=== PATIENT | female | born 1940 | race Hispanic/Latino ===

== ENCOUNTER 2017-11-16 18:32 | Emergency (ER) | payer OTHER ==
[~2017-11-16 18:32] MED LIST: ASPI-1181 PO; BACL10TA PO; CHOL50004 PO; EXEM25TA PO; LEVE750T10 PO; LEVO25TA54 PO; OMEP40CA37 PO; SIMV40TA59 PO; TRAM50TA4 PO; VALS1TAB54 PO; VERA120C2 PO
[2017-11-16] MEDS ORDERED: KETOROLAC TROMETHAMINE 15MG/ML ONE (19:27)
== END 2017-11-16 21:09 | disposition home or self-care (01) ==
LOC: EDH 18:32
DX: S16.1XXA Strain of muscle, fascia and tendon at neck level, initial encounter (principal); S39.012A Strain of muscle, fascia and tendon of lower back, initial encounter; I10 Essential (primary) hypertension; E07.9 Disorder of thyroid, unspecified; Z90.10 Acquired absence of unspecified breast and nipple; Z79.82 Long term (current) use of aspirin; V49.59XA Passenger injured in collision with other motor vehicles in traffic accident, initial encounter; Y93.89 Activity, other specified; Y92.89 Other specified places as the place of occurrence of the external cause; Y99.8 Other external cause status
CPT/HCPCS: 72125; 72128; 72131; 96374; 99284; J1885

== ENCOUNTER → 2018-05-09 | Outpatient (CLI) | payer OTHER | END | disposition home or self-care (01) | LOC: RAH 08:57 | PROVIDERS: ATTEND Family Medicine | DX: R92.8 Other abnormal and inconclusive findings on diagnostic imaging of breast (principal); Z85.3 Personal history of malignant neoplasm of breast | CPT/HCPCS: 77065 ==

== ENCOUNTER 2019-03-06 05:54 | Observation (INO) | payer OTHER ==
[2019-02-28 15:40] VITALS: BP 147/69
[2019-02-28 16:15] LABS: INR 0.94 (0.85-1.15); PARTIAL THROMBOPLASTIN TIME 25.9 SEC (26.3-35.5); PROTHROMBIN TIME 9.9 SEC (9.6-11.6)
[~2019-03-06] VITALS: Ht 162.6 cm; Wt 99.0 kg
[2019-03-06] VITALS (20 sets, daily range): BP systolic 122–182; BP diastolic 54–77
[~2019-03-06 05:54] MED LIST changes: -BACL10TA PO; +CALC600T12 PO; +CEFAZOLIN SODIUM 1 GM VIAL IVP ONE; -EXEM25TA PO; +FISH12002 PO; +LOSA50TA2 PO; -VALS1TAB54 PO
[2019-03-06] MEDS ORDERED: MIDAZOLAM HCL 1 MG/ML 2ML VIAL ONE (07:12)
[2019-03-06] MEDS ORDERED: LIDOCAINE PF 2% 5ML ABBOJECT ONE (07:12)
[2019-03-06] MEDS ORDERED: PROPOFOL 10 MG/ML 20ML VIAL IV ONE ×2 (07:12→08:52)
[2019-03-06] MEDS ORDERED: ROPIVACAINE 0.5% 5MG/ML 30ML IJ ONE ×2 (07:12→07:32)
[2019-03-06] MEDS ORDERED: FENTANYL CITRATE PF 50 MCG/1 ML 2ML VIAL ONE ×4 (07:12→10:14)
[2019-03-06] MEDS ORDERED: ROCURONIUM 10MG/1ML SYR 10 MG/ML ML ONE ×2 (07:12→07:44)
[2019-03-06] MEDS ORDERED: TRANEXAMIC ACID 1000MG/10ML IV ONE (07:15)
[2019-03-06] MEDS ORDERED: VANCOMYCIN HCL 1 GM VIAL ONE (07:17)
[2019-03-06] MEDS ORDERED: NEOSTIGMINE 5MG/5ML SYR IV ONE (07:18)
[2019-03-06] MEDS ORDERED: GLYCOPYRROLATE 1 MG/5 ML SYRINGE ONE (07:18)
[2019-03-06] MEDS ORDERED: CEFAZOLIN SODIUM 1 GM VIAL ONE (07:42)
--- NOTE | 2019-03-06 07:42 | NUR ---
POTENTIAL FOR INFECTION: NO SHAVING TO RIGHT SHOULDER / ARM NEEDED ASSESSED PER ELIZABETH QUEVEDO. WIPED WITH AME: 2% CHLORHEXIDINE GLUCONATE PATIENTS PRE-OP SKIN PREP PER RAMIRO TURCIOS
--- NOTE | 2019-03-06 07:59 | NUR ---
POTENTIAL FOR INFECTION: SWABBED BILATERAL NARE WITH SKIN AND NASAL ANTISEPTIC (POVIDONE-IODINE SOLUTION 5% PATIENTS PRE-OP SKIN PREPARATION ORDERED PER DR. MAHONEY.
[2019-03-06] MEDS ORDERED: LACTATED RINGERS 1000ML 1,000 ML IV SCH (08:00)
[2019-03-06] MEDS ORDERED: ONDANSETRON HCL 4 MG/2 ML VIAL ONE (08:57)
[2019-03-06] MEDS ORDERED: DEXAMETHASONE SOD PHOSPHATE 10MG/ML 1ML VIAL ONE (08:57)
[2019-03-06] MEDS ORDERED: KETOROLAC TROMETHAMINE 30MG/ML ONE (09:40)
[2019-03-06] MEDS: SODIUM CHLORIDE 0.9% 1000ML 1,000 ML IV SCH ×2 (10:08→21:30)
[2019-03-06] MEDS ORDERED: KETOROLAC TROMETHAMINE 15MG/ML IV PRN (10:15)
[2019-03-06] MEDS ORDERED: CALCIUM CARBONATE 500 MG TABLET PO PRN (10:15)
[2019-03-06] MEDS ORDERED: OXYCODONE HCL 5 MG TAB PO PRN (10:15)
[2019-03-06] MEDS ORDERED: ONDANSETRON HCL 4 MG/2 ML VIAL IVP PRN (10:15)
[2019-03-06] MEDS: ACETAMINOPHEN EXTRA STRENGTH 500 MG TABLET PO SCH ×2 (10:15→17:02)
--- NOTE | 2019-03-06 10:30 | NUR ---
ZHANG DOLL NOTIFIED OF PT'S PAIL LEVEL. PT IDENTIFICATION PREFORMED AND RIGHT SITE CONDUCTED, ZHANG DOLL RE-BLOCKED THE AREA. Addendum: 03/06/19 at 1035 by JENNI DUMONT RN RN Amended: Links added.
--- NOTE | 2019-03-06 15:40 | NUR ---
INITIAL CM NOTES/REFERRA Met w patient /spouse at bedside at 1550 s/p tka, states has all dme, daughter works at [employer], [facility] set up at MD office, consent for JARED/choice signed, states home safe & accessible, uses cane 80% of the time; still drives occasionally, family ready /supportive of this surgery, dcp home Call to MD office for clarification of order; sent referral pkt to [facility], call returned// accepting patient Addendum: 03/07/19 at 1300 by EDEL HILL RN CM Amended: Links added.
[2019-03-06] MEDS: CEFAZOLIN SODIUM 1 GM VIAL IVP SCH (16:13)
[2019-03-06] MEDS: OXYCODONE HCL 5 MG TAB PO PRN (17:03)
[2019-03-06] MEDS ORDERED: ASPIRIN 81 MG EC TAB PO SCH (21:00)
[2019-03-06] MEDS ORDERED: FAMOTIDINE 20MG TAB 20 MG TAB PO SCH (21:00)
[2019-03-06] MEDS: CELECOXIB 200 MG CAP PO SCH (21:26)
[2019-03-06] MEDS: LEVETIRACETAM 500 MG TABLET PO SCH (21:26)
[2019-03-06] MEDS: SIMVASTATIN 20 MG TABLET PO SCH (21:26)
[2019-03-06] MEDS: VERAPAMIL HCL 240 MG SRTAB PO SCH (22:11)
[2019-03-07] MEDS: CEFAZOLIN SODIUM 1 GM VIAL IVP SCH (00:04)
[2019-03-07 00:30] VITALS: BP 145/77
[2019-03-07] MEDS: ACETAMINOPHEN EXTRA STRENGTH 500 MG TABLET PO SCH ×3 (02:24→16:52)
[2019-03-07 04:00] VITALS: BP 136/61
[2019-03-07 04:16] LABS: HEMATOCRIT 30.8 % (36-48); MEAN CORPUSCULAR HEMOGLOBIN 33.9 pg (27.0-33.0); MEAN CORPUSCULAR HGB CONC 34.3 g/dL (32.0-36.0); MEAN CORPUSCULAR VOLUME 98.7 fL (79-99); PLATELET COUNT (AUTO) 219 K/uL (130-400); RED BLOOD CELL COUNT(AUTO) 3.12 MIL/uL (4.00-5.50); RED CELL DISTRIBUTION WIDTH 12.6 % (11.0-15.5); WHITE BLOOD COUNT (AUTO) 10.5 K/uL (4.8-10.8)
[2019-03-07 04:30] LABS: CREATININE 0.9 mg/dL (0.5-1.5); POTASSIUM 4.5 mmol/L (3.5-5.1)
[2019-03-07] MEDS: SODIUM CHLORIDE 0.9% 1000ML 1,000 ML IV SCH (06:08)
[2019-03-07 08:07] VITALS: BP 129/65
--- NOTE | 2019-03-07 08:20 | NUR ---
PT NOTE: DISCUSSED HEP WITH PATIENT VIA VERBAL AND PHYSICAL DEMONSTRATION ALONG WITH RETURN DEMO FROM PATIENT. Addendum: 03/07/19 at 905 by CLEMENTINA SANDOVAL PT Amended: Links added.
[2019-03-07] MEDS ORDERED: PANTOPRAZOLE SODIUM 40 MG TABLET.DR PO SCH (09:00)
[2019-03-07] MEDS ORDERED: LEVOTHYROXINE 25 MCG TABLET PO SCH (09:00)
[2019-03-07] MEDS: **HM** VIT D3 5000 UNITS PO SCH (09:00)
[2019-03-07] MEDS: ASPIRIN 81 MG EC TAB PO SCH (10:00)
[2019-03-07] MEDS: LEVETIRACETAM 500 MG TABLET PO SCH ×2 (10:00→20:43)
[2019-03-07] MEDS: LOSARTAN 50 MG TABLET PO SCH (10:00)
[2019-03-07] MEDS ORDERED: PHARMACY COMMUNICATION MISC SCH (10:00)
[2019-03-07] MEDS: CELECOXIB 200 MG CAP PO SCH ×2 (10:00→20:42)
[2019-03-07] MEDS: CALCIUM CARBONATE 500 MG TABLET PO SCH (10:01)
[2019-03-07] MEDS: POLYETHYLENE GLYCOL 3350 17 GM POWD.PACK PO SCH (10:01)
[2019-03-07] MEDS: OMEPRAZOLE 40 MG PO SCH (10:15)
[2019-03-07 10:48] VITALS: BP 123/52
--- NOTE | 2019-03-07 13:01 | NUR ---
CALL TO DR. TRONCOSO OFFICE CALL MADE AT [address] TRONCOSO OFFICE- NOTED PATIENT ORDER. CLAIRIFICATION? STATES THEY WOULD CALL BACK DR. MAHONEY ON THE FLOOR JUST NOW AT 1309, ORDER GAL, Addendum: 03/07/19 at 1309 by EDEL HILL RN CM Amended: Links added.
[2019-03-07 16:15] VITALS: BP 135/69
[2019-03-07] MEDS: OXYCODONE HCL 5 MG TAB PO PRN (17:56)
[2019-03-07 19:38] VITALS: BP 154/85
[2019-03-07] MEDS: VERAPAMIL HCL 240 MG SRTAB PO SCH (20:42)
[2019-03-07] MEDS: SIMVASTATIN 20 MG TABLET PO SCH (20:42)
[2019-03-07] MEDS: TRAMADOL HCL 50 MG TABLET PO PRN (21:00)
[2019-03-08] MEDS: ACETAMINOPHEN EXTRA STRENGTH 500 MG TABLET PO SCH ×2 (01:55→09:29)
[2019-03-08 04:00] VITALS: BP 137/64
[2019-03-08] MEDS ORDERED: LEVOTHYROXINE 25 MCG TABLET PO SCH (07:30)
[2019-03-08 07:42] VITALS: BP 144/63
[2019-03-08] MEDS: **HM** VIT D3 5000 UNITS PO SCH (08:27)
[2019-03-08] MEDS: CELECOXIB 200 MG CAP PO SCH (09:24)
[2019-03-08] MEDS: LOSARTAN 50 MG TABLET PO SCH (09:24)
[2019-03-08] MEDS: ASPIRIN 81 MG EC TAB PO SCH (09:24)
[2019-03-08] MEDS: OMEPRAZOLE 40 MG PO SCH (09:25)
[2019-03-08] MEDS: CALCIUM CARBONATE 500 MG TABLET PO SCH (09:25)
[2019-03-08] MEDS: OXYCODONE HCL 5 MG TAB PO PRN (09:25)
[2019-03-08] MEDS: POLYETHYLENE GLYCOL 3350 17 GM POWD.PACK PO SCH (09:25)
[2019-03-08] MEDS: LEVETIRACETAM 500 MG TABLET PO SCH (09:25)
[2019-03-08 11:15] VITALS: BP 142/63
[2019-03-08] MEDS: TRAMADOL HCL 50 MG TABLET PO PRN (13:19)
--- NOTE | 2019-03-08 16:17 | NUR ---
Discharge teaching completed in the room with pt ans family at side. Emphasis on Dr. Cain's orders for activity, incision care, and s/s to monitor for, including when to seek emergency care vs dial 911. Pt is to call to schedule follow up appt with Dr. Cain on Sunday, to be seen within 2 weeks. Written rx for walker, asa 81 mg, and Tylenol 3 given to pt. Discussed medication purpose, route, frequency, and duration, as well as side effects and adverse effects. Dressing change to left knee per Dr. Cain's orders. Incision asymptomatic, well approximated with surgical glue. No active drainage. Painted with Betadine, dressed with sterile 4x4's and tape. Pt tolerated well. PIV removed, tip intact. Dressed with sterile 2x2 and band aid after hemostasis. Pt wheeled to front lobby by [facility] staff for transport home via private car. Pt in stable condition at time of discharge. Addendum: 03/08/19 at 1634 by KING DEXTER RN RN Pt stated already has walker at home. She stated that home health has already been set up by Dr. Cain's office through [employer].
[2019-03-09] MEDS ORDERED: BISACODYL 10 MG SUPP.RECT RC PRN (10:15)
== END 2019-03-08 16:30 | disposition home health service (06) ==
LOC: DAH 05:54 → INTOOBSV 05:55 → 4AH 05:55 → DAH 05:55
PROVIDERS: ADMIT Orthopaedic Surgery; ATTEND Orthopaedic Surgery
DX: M17.12 Unilateral primary osteoarthritis, left knee (principal); E66.9 Obesity, unspecified; G40.909 Epilepsy, unspecified, not intractable, without status epilepticus; Z79.899 Other long term (current) drug therapy; Z79.01 Long term (current) use of anticoagulants
CPT/HCPCS: 27447; 36415 ×3; 80048; 85027; 85610; 85730; 86850; 86900; 86901; 87641; 88304; 88311; 96374; 96375; 96376; 97039; 97116 ×5; 97161; 97530 ×5; A4450; A4649 ×5; A4930 ×3; A6223; C1776; G0378 ×27; G8978; G8979; G8980; G8981; G8982; G8983; J0690 ×3; J1100; J1885 ×2; J2001; J2250; J2405; J2704 ×2; J2710; J2795 ×2; J3010 ×4; J3370; J3490 ×2; J7030; J7120 ×2

== ENCOUNTER → 2019-05-20 | Outpatient (CLI) | payer OTHER ==
[~2019-05-20] MED LIST changes: -CEFAZOLIN SODIUM 1 GM VIAL IVP ONE; +OMEP40CA13 PO; -OMEP40CA37 PO
== END | disposition home or self-care (01) ==
LOC: RAH 05-14 09:47
PROVIDERS: ATTEND Family Medicine
DX: R92.8 Other abnormal and inconclusive findings on diagnostic imaging of breast (principal); Z85.3 Personal history of malignant neoplasm of breast
CPT/HCPCS: 77065

== ENCOUNTER → 2020-01-20 | Outpatient (CLI) | payer OTHER ==
[~2020-01-20] MED LIST changes: -ASPI-1181 PO; +ASPI-1443 PO; -CALC600T12 PO; +CALC600T15 PO
== END | disposition home or self-care (01) ==
LOC: SHCH 08:01
PROVIDERS: ATTEND Internal Medicine Cardiovascular Disease
DX: I70.0 Atherosclerosis of aorta (principal); I10 Essential (primary) hypertension
CPT/HCPCS: 93975

== ENCOUNTER 2020-07-13 09:57 | Observation (INO) | payer OTHER ==
[~2020-07-13] VITALS: Ht 166.4 cm; Wt 93.3 kg
[~2020-07-13 09:57] MED LIST changes: +CALC-1125 PO; -CALC600T15 PO; -OMEP40CA13 PO; +OMEP40CA21 PO
[2020-07-13 10:48] LABS: BASOPHILS % (AUTO) 0.1 % (0.0-5.0); EOSINOPHILS % (AUTO) 0.1 % (0.0-8.0); HEMATOCRIT 32.3 % (36-48); LYMPHOCYTES % (AUTO) 8.6 % (21.0-51.0); MEAN CORPUSCULAR HEMOGLOBIN 33.4 pg (27.0-33.0); MEAN CORPUSCULAR HGB CONC 34.4 g/dL (32.0-36.0); MEAN CORPUSCULAR VOLUME 97.3 fL (79-99); MONOCYTES % (AUTO) 11.4 % (3.0-13.0); NEUTROPHILS % (AUTO) 79.3 % (40.0-77.0); PLATELET COUNT (AUTO) 271 K/uL (130-400); RED BLOOD CELL COUNT(AUTO) 3.32 MIL/uL (4.00-5.50); RED CELL DISTRIBUTION WIDTH 12.3 % (11.0-15.5)
[2020-07-13 10:49] LABS: CREATININE 1.5 mg/dL (0.5-1.5); POTASSIUM 4.3 mmol/L (3.5-5.1)
[2020-07-13 10:54] LABS: ALBUMIN 3.3 g/dL (3.5-5.0); BILIRUBIN,TOTAL 0.9 mg/dL (0.2-1.0)
[2020-07-13] MEDS ORDERED: 0.9%NACL 1000ML 1,000 ML IV ONE ×2 (11:23→19:38)
[2020-07-13 12:31] LABS: APPEARANCE,URINE Cloudy (CLEAR); BILIRUBIN,URINE Negative (NEGATIVE); COLOR,URINE Yellow (YELLOW); GLUCOSE, URINE (UA) Negative (NEGATIVE); KETONES,URINE Negative (NEGATIVE); LEUKOCYTE ESTERASE ,URINE Large (NEGATIVE); NITRATE,URINE Positive (NEGATIVE); OCCULT BLOOD,URINE Moderate (NEGATIVE); PROTEIN,URINE Trace mg/dL (NEGATIVE)
[2020-07-13 12:39] LABS: BACTERIA,URINE Few /HPF (None Seen); RBC,URINE 0-1 /HPF (0-1); SQUAMOUS EPITHELIAL CELL,UR Rare /HPF (0-2)
[2020-07-13] MEDS ORDERED: ASPIRIN 325 MG TABLET ONE (14:59)
[2020-07-13] MEDS ORDERED: CEFTRIAXONE 1G VIAL ONE (14:59)
[2020-07-13] MEDS ORDERED: ACETAMINOPHEN 325 MG TAB PO PRN (15:15)
[2020-07-13] MEDS ORDERED: ONDANSETRON 4MG INJ IVP PRN (15:15)
[2020-07-13] MEDS ORDERED: CLONIDINE HCL 0.1 MG TABLET PO PRN ×2 (15:15)
[2020-07-13] MEDS ORDERED: TEMAZEPAM 15 MG CAPSULE PO PRN (15:15)
[2020-07-13] MEDS ORDERED: DOCUSATE SODIUM 100 MG CAP PO PRN (15:15)
[2020-07-13] MEDS ORDERED: ACETAMINOPHEN 650 MG SUPPOSITORY RC PRN (15:15)
[2020-07-13] MEDS: INSULIN HUMULIN R 100 UNIT/ML 3ML SQ SCH ×2 (16:30→21:00)
[2020-07-13 18:08] LABS: TROPONIN I 0.15 ng/mL (0.00-0.06)
[2020-07-13] MEDS ORDERED: ACETAMINOPHEN 325 MG TAB ONE (19:48)
[2020-07-13] MEDS ORDERED: FAMOTIDINE 20MG TAB ONE (20:32)
[2020-07-13] MEDS ORDERED: FAMOTIDINE 20MG TAB PO SCH (21:00)
[2020-07-13 21:26] LABS: TROPONIN I 0.12 ng/mL (0.00-0.06)
[2020-07-13] MEDS ORDERED: TRAMADOL HCL 50 MG TABLET PO PRN (22:30)
[2020-07-13] MEDS: 0.9%NACL 1000ML 1,000 ML IV SCH (23:15)
[2020-07-14] MEDS ORDERED: ACETAMINOPHEN 325 MG TAB ONE (02:52)
[2020-07-14 04:01] LABS: BASOPHILS % (AUTO) 0.2 % (0.0-5.0); EOSINOPHILS % (AUTO) 0.3 % (0.0-8.0); HEMATOCRIT 28.4 % (36-48); LYMPHOCYTES % (AUTO) 9.1 % (21.0-51.0); MEAN CORPUSCULAR HGB CONC 34.9 g/dL (32.0-36.0); MEAN CORPUSCULAR VOLUME 97.6 fL (79-99); PLATELET COUNT (AUTO) 221 K/uL (130-400); RED BLOOD CELL COUNT(AUTO) 2.91 MIL/uL (4.00-5.50); RED CELL DISTRIBUTION WIDTH 12.3 % (11.0-15.5); WHITE BLOOD COUNT (AUTO) 13.6 K/uL (4.8-10.8)
[2020-07-14 04:25] LABS: CREATININE 1.1 mg/dL (0.5-1.5); MAGNESIUM 1.9 mg/dL (1.80-2.40); POTASSIUM 4.6 mmol/L (3.5-5.1); THYROID STIMULATING HORMONE 1.03 uIU/mL (0.36-3.74); TROPONIN I 0.11 ng/mL (0.00-0.06)
[2020-07-14 04:29] LABS: B-TYPE NATRIURETIC PEPTIDE 60 pg/mL (0-100); CHOLESTEROL 98 mg/dL (<200); HDL CHOLESTEROL 80 mg/dL (35-85); LDL DIRECT 25 mg/dL (0-99); TRIGLYCERIDES 53 mg/dL (30-200)
[2020-07-14] MEDS: 0.9%NACL 1000ML 1,000 ML IV SCH ×4 (07:15→23:15)
[2020-07-14] MEDS: INSULIN HUMULIN R 100 UNIT/ML 3ML SQ SCH ×4 (07:30→21:00)
[2020-07-14] MEDS ORDERED: ASPIRIN 81MG CHEW TAB ONE (07:52)
[2020-07-14] MEDS ORDERED: ASCORBIC ACID 500 MG TAB ONE (07:52)
[2020-07-14] MEDS ORDERED: LEVOTHYROXINE 25 MCG TABLET ONE (07:52)
[2020-07-14] MEDS ORDERED: FAMOTIDINE 20MG TAB ONE (07:52)
[2020-07-14] MEDS ORDERED: POLYETHYLENE GLYCOL 3350 17 GM POWD.PACK ONE (07:53)
[2020-07-14] MEDS ORDERED: CEFTRIAXONE 1G VIAL ONE (07:53)
[2020-07-14] MEDS ORDERED: LOSARTAN 50 MG TABLET ONE (07:53)
[2020-07-14] MEDS ORDERED: ENOXAPARIN SODIUM 40 MG/0.4 ML SYRINGE SQ ONE (07:53)
[2020-07-14] MEDS ORDERED: 0.9%NACL 100ML 100 ML IV ONE (07:54)
[2020-07-14] MEDS: ASCORBIC ACID 500 MG TAB PO SCH (09:00)
[2020-07-14] MEDS ORDERED: NON-FORMULARY MEDICATION 1 EACH (Omeprazole 40 MG) PO SCH (09:00)
[2020-07-14] MEDS ORDERED: NON-FORMULARY MEDICATION 1 EACH (Levetiracetam 750 MG) PO SCH (09:00)
[2020-07-14] MEDS: LOSARTAN 50 MG TABLET PO SCH (09:00)
[2020-07-14] MEDS: LEVOTHYROXINE 25 MCG TABLET PO SCH (09:00)
[2020-07-14] MEDS: ASPIRIN 81MG CHEW TAB PO SCH (09:00)
[2020-07-14] MEDS ORDERED: NON-FORMULARY MEDICATION 1 EACH (Calcium Carbonate (Calcium) 600 MG) PO SCH (09:00)
[2020-07-14] MEDS: ASPIRIN 81 MG EC TAB PO SCH (09:00)
[2020-07-14] MEDS ORDERED: CHOLECALCIFEROL 5000 UNIT PO SCH (09:00)
[2020-07-14] MEDS: FAMOTIDINE 20MG TAB PO SCH (09:00)
[2020-07-14] MEDS: POLYETHYLENE GLYCOL 3350 17 GM POWD.PACK PO SCH (09:00)
[2020-07-14] MEDS: CEFTRIAXONE 1G VIAL IVP SCH (09:00)
[2020-07-14] MEDS ORDERED: 0.9%NACL 1000ML 1,000 ML IV ONE (09:48)
[2020-07-14] MEDS ORDERED: ZOSYN 3.375GM+NS 50ML 50 ML IV ONE (11:43)
[2020-07-14] MEDS: ZOSYN 3.375GM+NS 50ML 50 ML IV SCH ×2 (13:00→21:57)
[2020-07-14 18:39] VITALS: BP 130/61
[2020-07-14 20:00] VITALS: BP 120/60
[2020-07-14] MEDS ORDERED: VERAPAMIL HCL 120 MG PO SCH (21:00)
[2020-07-14] MEDS ORDERED: NON-FORMULARY MEDICATION 1 EACH (Simvastatin (Zocor) 40 MG) PO SCH (21:00)
[2020-07-14] MEDS ORDERED: SIMVASTATIN 20 MG TABLET PO SCH (21:00)
[2020-07-14] MEDS ORDERED: VERAPAMIL HCL 80 MG TABLET PO SCH (21:00)
[2020-07-14 21:10] VITALS: BP 150/57
[2020-07-14 21:11] VITALS: BP_SYST 131; BP_SYST 136; BP_DIAS 68; BP_DIAS 84
[2020-07-14] MEDS ORDERED: PHARMACY COMMUNICATION MISC STA (21:48)
[2020-07-14] MEDS: LEVETIRACETAM 250 MG TABLET PO SCH (21:53)
[2020-07-14 23:24] VITALS: BP 131/61
[2020-07-14] MEDS: ENOXAPARIN SODIUM 40 MG/0.4 ML SYRINGE SQ SCH (23:59)
[2020-07-15 03:58] VITALS: BP 112/58
[2020-07-15 04:46] LABS: HEMATOCRIT 25.1 % (36-48); MEAN CORPUSCULAR HGB CONC 35.1 g/dL (32.0-36.0); MEAN CORPUSCULAR VOLUME 96.9 fL (79-99); RED BLOOD CELL COUNT(AUTO) 2.59 MIL/uL (4.00-5.50); RED CELL DISTRIBUTION WIDTH 12.1 % (11.0-15.5); WHITE BLOOD COUNT (AUTO) 8.5 K/uL (4.8-10.8)
[2020-07-15 04:51] LABS: CREATININE 1.1 mg/dL (0.5-1.5); POTASSIUM 3.8 mmol/L (3.5-5.1)
[2020-07-15] MEDS: ZOSYN 3.375GM+NS 50ML 50 ML IV SCH (06:41)
[2020-07-15] MEDS: 0.9%NACL 1000ML 1,000 ML IV SCH (06:48)
[2020-07-15] MEDS: INSULIN HUMULIN R 100 UNIT/ML 3ML SQ SCH ×2 (07:30→11:30)
[2020-07-15 08:00] VITALS: BP 135/50
[2020-07-15] MEDS ORDERED: CALCIUM CARB 500MG PO SCH (09:00)
[2020-07-15] MEDS: ASPIRIN 81 MG EC TAB PO SCH (09:00)
[2020-07-15] MEDS ORDERED: CHOLECALCIFEROL 5000 UNIT PO SCH (09:00)
[2020-07-15] MEDS ORDERED: LEVO500T90 PO (10:13)
[2020-07-15] MEDS: FAMOTIDINE 20MG TAB PO SCH (10:57)
[2020-07-15] MEDS: ASPIRIN 81MG CHEW TAB PO SCH (10:57)
[2020-07-15] MEDS: LEVETIRACETAM 250 MG TABLET PO SCH (10:57)
[2020-07-15] MEDS: POLYETHYLENE GLYCOL 3350 17 GM POWD.PACK PO SCH (10:57)
[2020-07-15] MEDS: LOSARTAN 50 MG TABLET PO SCH (10:58)
[2020-07-15] MEDS: ASCORBIC ACID 500 MG TAB PO SCH (10:58)
[2020-07-15] MEDS: LEVOTHYROXINE 25 MCG TABLET PO SCH (10:58)
[2020-07-15] MEDS: ENOXAPARIN SODIUM 40 MG/0.4 ML SYRINGE SQ SCH (10:58)
[2020-07-15] MEDS: CEFTRIAXONE 1G VIAL IVP SCH ×2 (10:59→12:22)
[2020-07-15 11:47] VITALS: BP 147/62
== END 2020-07-15 13:30 | disposition home or self-care (01) ==
LOC: EDH 09:57 → EDHIP 15:14 → 3DH 07-14 17:49
PROVIDERS: ADMIT Internal Medicine Critical Care Medicine; ATTEND Internal Medicine Critical Care Medicine
DX: M48.061 Spinal stenosis, lumbar region without neurogenic claudication (principal); K59.09 Other constipation; R55 Syncope and collapse; N39.0 Urinary tract infection, site not specified; R32 Unspecified urinary incontinence; E66.9 Obesity, unspecified; I10 Essential (primary) hypertension; N17.9 Acute kidney failure, unspecified; E03.9 Hypothyroidism, unspecified; E87.1 Hypo-osmolality and hyponatremia; R79.89 Other specified abnormal findings of blood chemistry; G40.909 Epilepsy, unspecified, not intractable, without status epilepticus; D64.9 Anemia, unspecified; E86.0 Dehydration; R60.1 Generalized edema; Z85.3 Personal history of malignant neoplasm of breast; Z92.3 Personal history of irradiation; Z90.11 Acquired absence of right breast and nipple; Z79.899 Other long term (current) drug therapy; W18.39XA Other fall on same level, initial encounter; Y93.89 Activity, other specified; Y92.009 Unspecified place in unspecified non-institutional (private) residence as the place of occurrence of the external cause; Z68.33 Body mass index [BMI] 33.0-33.9, adult
CPT/HCPCS: 36415 ×3; 70450; 71045; 72146; 72148; 80048 ×2; 80053; 80061; 81001; 82550 ×3; 82948 ×4; 83735; 83874 ×3; 83880 ×2; 84100; 84443; 84484 ×5; 85025 ×2; 85027; 85378; 87040 ×2; 87077; 87088; 87186; 93005; 93880; 93970; 96365; 96366 ×2; 96372 ×2; 96375; 96376; 97116; 97161; 99285; G0378 ×45; G8978; G8979; G8980; G8981; G8982; G8983; J0696 ×3; J1650 ×3; J1815; J2543 ×3; J7030 ×4

== ENCOUNTER 2021-01-09 09:16 | Observation (INO) | payer OTHER ==
[2021-01-09] VITALS (8 sets, daily range): BP systolic 120–153; BP diastolic 42–62
[~2021-01-09] VITALS: Ht 167.6 cm; Wt 94.3 kg
[~2021-01-09 09:16] MED LIST changes: +LEVO500T89 PO
[2021-01-09 10:18] LABS: BASOPHILS % (AUTO) 0.2 % (0.0-5.0); EOSINOPHILS % (AUTO) 1.1 % (0.0-8.0); LYMPHOCYTES % (AUTO) 32.2 % (21.0-51.0); MEAN CORPUSCULAR HEMOGLOBIN 33.6 pg (27.0-33.0); MEAN CORPUSCULAR HGB CONC 36.7 g/dL (32.0-36.0); MEAN CORPUSCULAR VOLUME 91.7 fL (79-99); NEUTROPHILS % (AUTO) 55.8 % (40.0-77.0); PLATELET COUNT (AUTO) 278 K/uL (130-400); RED BLOOD CELL COUNT(AUTO) 3.27 MIL/uL (4.00-5.50); RED CELL DISTRIBUTION WIDTH 11.9 % (11.0-15.5); WHITE BLOOD COUNT (AUTO) 5.7 K/uL (4.8-10.8)
[2021-01-09 10:37] LABS: ALBUMIN 3.6 g/dL (3.5-5.0); BILIRUBIN,TOTAL 0.4 mg/dL (0.2-1.0); CREATININE 1.1 mg/dL (0.5-1.5); PHENYTOIN (DILANTIN) 3.2 mcg/mL (10.0-20.0); TOTAL PROTEIN, SERUM 7.1 g/dL (6.0-8.3)
[2021-01-09 10:41] LABS: APPEARANCE,URINE Clear (CLEAR); BILIRUBIN,URINE Negative (NEGATIVE); COLOR,URINE Yellow (YELLOW); GLUCOSE, URINE (UA) Negative (NEGATIVE); KETONES,URINE Negative (NEGATIVE); LEUKOCYTE ESTERASE ,URINE Moderate (NEGATIVE); NITRATE,URINE Positive (NEGATIVE); OCCULT BLOOD,URINE Trace (NEGATIVE); PH,URINE 6.5 (5.0-8.0); PROTEIN,URINE Negative (NEGATIVE)
[2021-01-09 10:49] LABS: AMPHET/METH SCREEN,URINE NEGATIVE (NEGATIVE); BARBITURATE SCREEN, URINE NEGATIVE (NEGATIVE); BENZODIAZEPINES SCREEN,URINE NEGATIVE (NEGATIVE); CANNABINOID SCREEN,URINE NEGATIVE (NEGATIVE); COCAINE SCREEN,URINE NEGATIVE (NEGATIVE); OPIATE SCREEN,URINE NEGATIVE (NEGATIVE); PHENCYCLIDINE SCREEN,URINE NEGATIVE (NEGATIVE)
[2021-01-09 11:27] LABS: BACTERIA,URINE Many /HPF (None Seen); RBC,URINE 0-1 /HPF (0-1); TRANSITIONAL EPI CELLS,URINE Few /HPF (None Seen)
[2021-01-09] MEDS: CEFTRIAXONE 1G VIAL IVP SCH (14:40)
[2021-01-09] MEDS: NACL 0.9% 1000ML 1,000 ML IV SCH (14:40)
[2021-01-09] MEDS ORDERED: SODIUM CHLORIDE 1,000 MG TAB PO SCH (21:00)
[2021-01-10] VITALS (8 sets, daily range): BP systolic 129–153; BP diastolic 35–80
[2021-01-10] MEDS: NACL 0.9% 1000ML 1,000 ML IV SCH ×2 (03:50→15:55)
[2021-01-10 08:05] LABS: ALBUMIN 3.5 g/dL (3.5-5.0); BILIRUBIN,TOTAL 0.3 mg/dL (0.2-1.0); MAGNESIUM 1.6 mg/dL (1.80-2.40); POTASSIUM 4.7 mmol/L (3.5-5.1); THYROID STIMULATING HORMONE 2.25 uIU/mL (0.36-3.74); TOTAL PROTEIN, SERUM 6.9 g/dL (6.0-8.3)
[2021-01-10] MEDS ORDERED: ATOR40TA71 PO (09:11)
[2021-01-10] MEDS ORDERED: LINA72CA PO (09:11)
[2021-01-10] MEDS ORDERED: PHEN100C9 PO (09:11)
[2021-01-10] MEDS ORDERED: PANT40GR PO (09:11)
[2021-01-10] MEDS ORDERED: SPIR50TA5 PO (09:11)
[2021-01-10] MEDS: PANTOPRAZOLE 40 MG TAB DR PO SCH (09:42)
[2021-01-10] MEDS: ENOXAPARIN SODIUM 30 MG/0.3 ML SQ SCH (09:43)
[2021-01-10] MEDS: SODIUM CHLORIDE 1,000 MG TAB PO SCH ×3 (09:51→20:52)
[2021-01-10] MEDS ORDERED: ONDANSETRON 4MG INJ IVP PRN (11:30)
[2021-01-10] MEDS: CEFTRIAXONE 1G VIAL IVP SCH (12:38)
[2021-01-10 16:17] LABS: CREATININE 0.6 mg/dL (0.5-1.5); POTASSIUM 3.2 mmol/L (3.5-5.1)
[2021-01-10] MEDS ORDERED: POTASSIUM CHLORIDE 10% ELIXIR 20 MEQ/15 ML UDCUP PO PRN (17:00)
[2021-01-10] MEDS ORDERED: LIDOCAINE HCL-MPF 1% 2ML VIAL IV PRN ×2 (17:00)
[2021-01-10] MEDS ORDERED: KCL 20 MEQ ERTAB PO PRN (17:00)
[2021-01-10] MEDS ORDERED: POTASSIUM CHLORIDE 20MEQ/100ML 100 ML IV PRN ×2 (17:00)
[2021-01-10] MEDS ORDERED: CALCIUM GLUC 1GM VIAL IV SCH (20:30)
[2021-01-10] MEDS: PHENYTOIN SODIUM 100 MG ERCAP PO SCH (20:52)
[2021-01-10] MEDS: LEVETIRACETAM 500 MG TABLET PO SCH (20:52)
[2021-01-10] MEDS ORDERED: VERAPAMIL HCL 240 MG SRTAB PO SCH (21:00)
[2021-01-10] MEDS ORDERED: 0.9%NACL 100ML 100 ML ONE (23:12)
[2021-01-11] MEDS ORDERED: POTASSIUM CHLORIDE 20MEQ/100ML 100 ML IV PRN ×2
[2021-01-11] MEDS ORDERED: GLUCAGON 1MG KIT 1 MG ML IM PRN
[2021-01-11] MEDS ORDERED: KCL 20 MEQ ERTAB PO PRN
[2021-01-11] MEDS ORDERED: POTASSIUM CHLORIDE 10% ELIXIR 20 MEQ/15 ML UDCUP PO PRN
[2021-01-11] MEDS ORDERED: DEXTROSE 50%-WATER 50 ML DISP.SYRIN IV PRN
[2021-01-11] MEDS ORDERED: LIDOCAINE HCL-MPF 1% 2ML VIAL IV PRN ×2
[2021-01-11] MEDS ORDERED: MAGNESIUM 2GM PREMIX 50ML 50 ML IV PRN
[2021-01-11 01:53] VITALS: BP 127/38
[2021-01-11] MEDS: NACL 0.9% 1000ML 1,000 ML IV SCH (05:15)
[2021-01-11 06:24] LABS: MEAN CORPUSCULAR HEMOGLOBIN 32.8 pg (27.0-33.0); MEAN CORPUSCULAR HGB CONC 34.8 g/dL (32.0-36.0); MEAN CORPUSCULAR VOLUME 94.2 fL (79-99); RED BLOOD CELL COUNT(AUTO) 3.08 MIL/uL (4.00-5.50); RED CELL DISTRIBUTION WIDTH 12.3 % (11.0-15.5); WHITE BLOOD COUNT (AUTO) 5.3 K/uL (4.8-10.8)
[2021-01-11 06:59] LABS: CREATININE 1.1 mg/dL (0.5-1.5); PHOSPHORUS 3.2 mg/dL (2.5-4.9); POTASSIUM 4.8 mmol/L (3.5-5.1)
[2021-01-11 08:00] VITALS: BP 155/55
[2021-01-11] MEDS: PANTOPRAZOLE 40 MG TAB DR PO SCH (08:17)
[2021-01-11] MEDS ORDERED: ATORVASTATIN 40 MG TABLET PO SCH (09:00)
[2021-01-11] MEDS ORDERED: LEVOTHYROXINE 25 MCG TABLET PO SCH (09:00)
[2021-01-11] MEDS ORDERED: LOSARTAN 50 MG TABLET PO SCH (09:00)
[2021-01-11] MEDS ORDERED: LINZESS 72 MCG PO SCH (09:00)
[2021-01-11] MEDS: PHENYTOIN SODIUM 100 MG ERCAP PO SCH (09:49)
[2021-01-11] MEDS: LEVETIRACETAM 500 MG TABLET PO SCH (09:50)
[2021-01-11] MEDS: SODIUM CHLORIDE 1,000 MG TAB PO SCH (09:50)
[2021-01-11] MEDS: ENOXAPARIN SODIUM 30 MG/0.3 ML SQ SCH (09:50)
[2021-01-11 10:00] VITALS: BP 157/62
[2021-01-11] MEDS ORDERED: AMOX-426 PO (10:47)
[2021-01-11 12:11] VITALS: BP 145/49
== END 2021-01-11 12:09 | disposition home or self-care (01) ==
LOC: EDH 09:16 → EDHIP 13:12 → 4CH 01-11 11:30 → EDHIP 01-11 11:35
PROVIDERS: ADMIT Internal Medicine Critical Care Medicine; ATTEND Internal Medicine Critical Care Medicine
DX: E87.1 Hypo-osmolality and hyponatremia (principal); R42 Dizziness and giddiness; N30.90 Cystitis, unspecified without hematuria; I10 Essential (primary) hypertension; E11.9 Type 2 diabetes mellitus without complications; K21.9 Gastro-esophageal reflux disease without esophagitis; E78.49 Other hyperlipidemia; G89.29 Other chronic pain; E03.9 Hypothyroidism, unspecified; G40.909 Epilepsy, unspecified, not intractable, without status epilepticus; Z16.23 Resistance to quinolones and fluoroquinolones; Z90.11 Acquired absence of right breast and nipple; Z79.899 Other long term (current) drug therapy
CPT/HCPCS: 36415 ×3; 70450; 71045; 80053 ×2; 80177; 80185; 80305; 81001; 82533; 82550; 83735 ×2; 83880 ×3; 83930; 83935; 84100; 84443; 84484; 85025; 85027; 87040 ×2; 87077; 87088; 87186; 93005; 96361 ×3; 96372 ×2; 96374; 96375; 96376; 99285; G0378 ×47; J0610; J0696 ×2; J1650 ×2; J2405; 80048

== ENCOUNTER → 2021-03-03 | Outpatient (CLI) | payer OTHER ==
[~2021-03-03] MED LIST changes: +AMOX-426 PO; +ATOR40TA71 PO; -LEVO500T89 PO; +LINA72CA PO; +PANT40GR PO; +PHEN100C9 PO; +SPIR50TA5 PO
== END | disposition home or self-care (01) ==
LOC: RAH 11:41
PROVIDERS: ATTEND Family Medicine
DX: R60.0 Localized edema (principal)
CPT/HCPCS: 93971

== ENCOUNTER → 2022-06-02 | Outpatient (CLI) | payer OTHER ==
[2022-06-02 12:49] LABS: CREATININE 0.9 mg/dL (0.5-1.5); POTASSIUM 4.2 mmol/L (3.5-5.1)
== END | disposition home or self-care (01) ==
LOC: LAB 09:20
PROVIDERS: ATTEND Internal Medicine Cardiovascular Disease
DX: I10 Essential (primary) hypertension (principal)
CPT/HCPCS: 36415; 80048

== ENCOUNTER 2024-04-23 10:38 | Emergency (ER) | payer OTHER ==
[~2024-04-23] VITALS: Ht 167.6 cm; Wt 79.4 kg
[~2024-04-23 10:38] MED LIST changes: +AEC81 PO; -AMOX-426 PO; -ASPI-1443 PO; -ATOR40TA71 PO; +BACL10TA PO; -CALC-1125 PO; +CARV6.25 PO; -CHOL50004 PO; -FISH12002 PO; +GABA-529 PO; -LEVO25TA54 PO; +LEVO50CA4 PO; +LINA145C PO; -LINA72CA PO; -LOSA50TA2 PO; -PANT40GR PO; -PHEN100C9 PO; -SPIR50TA5 PO; -TRAM50TA4 PO; -VERA120C2 PO; +VERA180T61 PO
[2024-04-23 11:05] VITALS: TEMP 97.5
[2024-04-23 11:10] LABS: BASOPHILS # (AUTO) 0.04 K/uL (0.00-0.20); BASOPHILS % (AUTO) 0.4 % (0.0-5.0); EOSINOPHILS # (AUTO) 0.26 K/uL (0.00-0.70); EOSINOPHILS % (AUTO) 2.8 % (0.0-8.0); HEMATOCRIT 34.5 % (36-48); IMMATURE GRANULOCYTE ABSOLUTE 0.12 K/uL (0-1); LYMPHOCYTES # (AUTO) 2.7 K/uL (1.0-4.8); LYMPHOCYTES % (AUTO) 29.4 % (21.0-51.0); MEAN CORPUSCULAR HEMOGLOBIN 33.7 pg (27.0-33.0); MEAN CORPUSCULAR HGB CONC 34.8 g/dL (32.0-36.0); MEAN CORPUSCULAR VOLUME 96.9 fL (79-99); MONOCYTES # (AUTO) 0.9 K/uL (0.1-1.0); MONOCYTES % (AUTO) 9.8 % (3.0-13.0); NEUTROPHILS # (AUTO) 5.2 K/uL (1.8-7.7); NEUTROPHILS % (AUTO) 56.3 % (40.0-77.0); PLATELET COUNT (AUTO) 395 K/uL (130-400); RED BLOOD CELL COUNT(AUTO) 3.56 MIL/uL (4.00-5.50); RED CELL DISTRIBUTION WIDTH 12.7 % (11.0-15.5); WHITE BLOOD COUNT (AUTO) 9.2 K/uL (4.8-10.8)
[2024-04-23 11:13] LABS: CREATININE 0.8 mg/dL (0.5-1.0); POTASSIUM 3.3 mmol/L (3.5-5.1)
[2024-04-23 11:30] LABS: B-TYPE NATRIURETIC PEPTIDE 67 pg/mL (0-100)
[2024-04-23] MEDS: PoTASSium BIcarbonate/CIT AC 25 MEQ TABLET.EFF PO ONE (13:37)
[2024-04-23 13:45] VITALS: BP 165/65; PULSE 69; RESP 20; O2SAT 99
== END 2024-04-23 13:49 | disposition home or self-care (01) ==
LOC: EDH 10:38
DX: R07.89 Other chest pain (principal); E78.1 Pure hyperglyceridemia; E78.6 Lipoprotein deficiency; E78.00 Pure hypercholesterolemia, unspecified; I10 Essential (primary) hypertension; E03.9 Hypothyroidism, unspecified; Z79.82 Long term (current) use of aspirin; Z79.899 Other long term (current) drug therapy; Z98.890 Other specified postprocedural states
CPT/HCPCS: 36415; 71045; 80048; 83880; 84484; 85025; 93005

== ENCOUNTER → 2024-07-26 | Outpatient (CLI) | payer OTHER ==
--- NOTE | 2024-07-28 07:50 | HMCSR ---
APPROVED REPORT Laterality: Bilateral Indications Claudication: , PAD VELOCITY AND DOPPLER WAVEFORM ANALYSIS STOCKLAYER (R) 76.4cm/sec, Monophasic, STOCKLAYER (L) 36.2cm/sec, Monophasic, Prof Fem Art. (R) 55.9cm/sec, Monophasic, Prof Fem Art. (L) 37.3cm/sec, Monophasic, Fem Art Prox. (R) 44.2cm/sec, Monophasic, Fem Art Prox. (L) 38.0cm/sec, Monophasic, Fem Art Mid. (R) 42.1cm/sec, Monophasic, Fem Art Mid. (L) 43.5cm/sec, Monophasic, Fem Art Dist (R) 40.0cm/sec, Monophasic, Fem Art Dist. (L) 37.3cm/sec, Monophasic, Pop Art(AK) (R) 36.6cm/sec, Monophasic, Pop Art (AK) (L) 32.4cm/sec, Monophasic, Pop Art (Fossa)(R) 26.2cm/sec, Monophasic, Pop Art (Fossa) (L) 21.6cm/sec, Monophasic, Pop Art(BK) (R) 29.7cm/sec, Monophasic, Pop Art (BK) (L) 33.4cm/sec, Monophasic, NURSING ASSOCIATE Prox. (R) 21.5cm/sec, Monophasic, NURSING ASSOCIATE Prox. (L) 25.3cm/sec, Monophasic, NURSING ASSOCIATE Mid. (R) 19.7cm/sec, Monophasic, NURSING ASSOCIATE Mid. (L) 25.7cm/sec, Monophasic, NURSING ASSOCIATE Dist. (R) 18.4cm/sec, Monophasic, NURSING ASSOCIATE Dist. (L) 21.6cm/sec, Monophasic, Per Art Prox. (R) 11.2cm/sec, Monophasic, Per Art Prox. (L) 14.9cm/sec, Monophasic, Per Art Mid. (R) 9.0cm/sec, Monophasic, Per Art Mid. (L) 9.0cm/sec, Monophasic, Per Art Dist. (R) 15.7cm/sec, Monophasic, Per Art Dist. (L) 10.4cm/sec, Monophasic, COTY Prox. (R) 19.9cm/sec, Monophasic, COTY Prox. (L) 24.7cm/sec, Monophasic, COTY Mid. (R) 17.1cm/sec, Monophasic COTY Mid. (L) 14.0cm/sec, Monophasic, COTY Dist. (R) 6.4cm/sec, Monophasic, COTY Dist. (L) 8.7cm/sec, Monophasic, Technologist Impression Monophasic waveforms throughout the bilateral lower extremiteis. Right and left common iliac arteries demonstrate monophsaic waveforms. Conclusion Severe bilateral PAD as above. Conclusion Severe bilateral PAD as above.
== END | disposition home or self-care (01) ==
LOC: SHCH 10:35
PROVIDERS: ATTEND Internal Medicine Cardiovascular Disease
DX: I73.9 Peripheral vascular disease, unspecified (principal)
CPT/HCPCS: 93925

== ENCOUNTER → 2024-09-03 | Outpatient (CLI) | payer OTHER ==
[2024-09-03 16:30] LABS: CREATININE 1.2 mg/dL (0.5-1.0); POTASSIUM 4.3 mmol/L (3.5-5.1)
== END | disposition home or self-care (01) ==
LOC: LAB 13:12
PROVIDERS: ATTEND Internal Medicine Cardiovascular Disease
DX: I71.40 Abdominal aortic aneurysm, without rupture, unspecified (principal)
CPT/HCPCS: 36415; 80048

== ENCOUNTER → 2024-09-17 | Outpatient (CLI) | payer OTHER ==
[~2024-09-17] MED LIST changes: +IOHEXOL-350 50ML VIAL IV ONE; +IOHEXOL-350 75 ML VIAL IV ONE
--- NOTE | 2024-09-17 13:58 | HMCIMG ---
CT ANGIO ABD AORTA W RUNOFF REASON: AAA COMPARISON: None TECHNIQUE: Axial images are obtained from lung bases to the feet before and during bolus IV contrast infusion, 125 cc Omnipaque 350. 2-D and 3-D multiplanar reconstruction images were then performed. FINDINGS: CT angiogram images show moderate atherosclerotic changes in the abdominal aorta. Mesenteric artery origins are preserved. Renal artery origins are less well visualized but are probably preserved as well. There are severe stenoses in both the right and the left common iliac arteries. External iliac and common femoral arteries appear widely patent. Right leg runoff shows normal-appearing superficial femoral artery. Popliteal artery appears unremarkable. Trifurcation vessels are patent. There is three-vessel runoff to the ankle. There is dorsalis pedis and posterior tibial runoff to the foot. Left leg runoff shows normal-appearing superficial femoral artery. There are are normal visualized portions of the popliteal artery, there is a short segment obscured by streak artifact from a total knee joint prosthesis. Trifurcation vessels are intact. There is three-vessel runoff to the ankle with posterior tibial and dorsalis pedis runoff to the foot. There is a small hiatal hernia. There are no focal liver lesions. Spleen, kidneys, pancreas and gallbladder appear normal. There is moderate sigmoid diverticulosis without diverticulitis, bowel loops appear otherwise normal. There is no retroperitoneal or pelvic lymphadenopathy. Pelvic soft tissues appear normal. Anterior abdominal wall is intact. IMPRESSION: 1. The moderate calcification in the the aorta, there is severe calcification in the common iliac arteries. 2. 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 3. Peripheral runoff appears normal bilaterally, with no visible atherosclerotic change or obstruction. 4. No significant nonvascular finding.
== END | disposition home or self-care (01) ==
LOC: RAH 08:31 → EDSTATUS 09:00
PROVIDERS: ATTEND Internal Medicine Cardiovascular Disease
DX: K57.30 Diverticulosis of large intestine without perforation or abscess without bleeding (principal); K44.9 Diaphragmatic hernia without obstruction or gangrene; I70.0 Atherosclerosis of aorta; I71.40 Abdominal aortic aneurysm, without rupture, unspecified
CPT/HCPCS: 75635; Q9967 ×2

== ENCOUNTER 2025-03-23 05:55 | Day surgery (SDC) | payer OTHER ==
[2025-03-20 10:55] LABS: IMMATURE GRANULOCYTE ABSOLUTE 0.01 K/uL (0-1); NUCLEATED RED BLOOD CELLS 0.0 % (0.0-0.19); PLATELET COUNT (AUTO) 299 K/uL (130-400); RED BLOOD CELL COUNT(AUTO) 3.71 MIL/uL (4.00-5.50); RED CELL DISTRIBUTION WIDTH 15.1 % (11.0-15.5); WHITE BLOOD COUNT (AUTO) 6.8 K/uL (4.8-10.8)
[2025-03-20 11:01] LABS: CREATININE 0.7 mg/dL (0.5-1.0); GLOMERULAR FILTR. RATE CALC 86.0 mL/min (>90); GLUCOSE,RANDOM 93.0 mg/dL (70-105); SODIUM SERUM 134.0 mmol/L (136-145); UREA NITROGEN, BLOOD 8.0 mg/dL (7-18)
[2025-03-20 11:04] LABS: INR 1.05 (0.85-1.15)
[2025-03-20 11:13] VITALS: BP 171/75; PULSE 64; RESP 15; TEMP 97.3
--- NOTE | 2025-03-20 11:40 | NUR ---
RE: POTASSIUM/UTI REPORTED K 3.0 TO CARLOS JONES. RECEIVED ORDERS TO CALL IN POTASSIUM 20MEQ PO X 1 DOSE TO PATIENT'S PHARMACY AND TO HAVE PATIENT REDUCE HCTZ TO 1/2 PILL DAILY (12.5MG) AND REPEAT BMP IN AM OF PROCEDURE. ALSO INFORMED CARLOS KIRKLAND THAT PATIENT STARTED ABX YESTERDAY FOR UTI, NO NEW ORDERS RECEIVED. CALLED [facility] AND SPOKE WITH JACQUES (PHARMACIST). CALLED IN POTASSIUM CHLORIDE 20MEQ X 1 DOSE PO. INSTRUCTED PATIENT TO TAKE HCTZ 12.5MG DAILY (HALF PILL) AND TAKE POTASSIUM PILL TODAY THAT WAS CALLED INTO HER PHARMACY.PATIENT VERBALIZED UNDERSTANDING.
[~2025-03-23] VITALS: Ht 165.1 cm; Wt 77.0 kg
[2025-03-23] VITALS (11 sets, daily range): BP systolic 122–144; BP diastolic 44–71; PULSE 64–78; RESP 12–16; TEMP 97.1–97.2
[~2025-03-23 05:55] MED LIST changes: -AEC81 PO; +ASPI-1443 PO; -BACL10TA PO; +CEFD300C3 PO; +CHOL2000 PO; -GABA-529 PO; +GABA300C PO; +HYDR25TA PO; -IOHEXOL-350 50ML VIAL IV ONE; -IOHEXOL-350 75 ML VIAL IV ONE; +IRON1CAP32 PO; -LEVE750T10 PO; +LEVE750T85 PO; -LEVO50CA4 PO; +LEVO50CA5 PO; +MIRA25TA PO; -SIMV40TA59 PO
[2025-03-23] MEDS: 0.9%NACL 1000ML 1,000 ML IV SCH (07:06)
[2025-03-23] MEDS ORDERED: HEParin-NS 1,000 UNIT/500 ML 1,000 ML IV ONE (07:09)
[2025-03-23] MEDS ORDERED: IODIXANOL 320 MG/ML 100 ML VIAL ONE (07:09)
[2025-03-23] MEDS ORDERED: LIDOCAINE HCL 400MG/20ML VIAL ONE (07:09)
[2025-03-23] MEDS ORDERED: NITROGLYCERIN 50MG VIAL ONE (07:10)
[2025-03-23 07:22] LABS: CREATININE 0.9 mg/dL (0.5-1.0); GLOMERULAR FILTR. RATE CALC 63.0 mL/min (>90); GLUCOSE,RANDOM 93.0 mg/dL (70-105); SODIUM SERUM 137.0 mmol/L (136-145); UREA NITROGEN, BLOOD 11.0 mg/dL (7-18)
[2025-03-23] MEDS ORDERED: MIDAZOLAM HCL 1 MG/ML 2ML VIAL ONE (07:26)
[2025-03-23] MEDS ORDERED: DEXTROSE 50%-WATER 50 ML DISP.SYRIN IV PRN (08:00)
[2025-03-23] MEDS ORDERED: 0.9%NACL 1000ML 1,000 ML IV SCH (08:00)
[2025-03-23] MEDS ORDERED: GLUCAGON 1MG KIT 1 MG ML IM PRN (08:00)
--- NOTE | 2025-03-23 08:03 | PRN ---
Procedure Note INDICATION FOR PROCEDURE: [] Symptom limiting claudication PID PROCEDURE: [] Conscious sedation Right common femoral arterial sheath placement six [place] ultrasound-guided Left common femoral arterial catheter placement with contrast injection and pressure measurement with runoff the left leg Right common femoral runoff to right leg DATE OF PROCEDURE: March 23, 2025 ETHNOGRAPHIC MATERIALS CONSERVATOR: Anand Gallego MD [facility] PROCEDURE NOTE: [] The patient was electively brought to catheterization suite and prepped and draped in sterile fashion. An IV was started if not already in place and both groins were exposed for arterial access. 2% lidocaine was used for local anesthesia and ultrasound guidance was utilized to get access to the right common femoral artery and then a six [place] sheath was placed. 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 This Omni flush catheter was then removed and runoff was then February right lower extremity. A contrast injection was performed at the distal abdominal aorta just above the bifurcation of bilateral common iliac arteries confirming occ luded distal abdominal aorta. FINDINGS: [] Occluded distal abdominal aorta Patent bilateral common iliac external iliac arteries Patent bilateral common femoral arteries and lying patent profunda femoris artery is Patent superficial femoral artery was Patent popliteal arteries Three-vessel runoff noted of the left foot and right foot IMPRESSION: [] Occluded abdominal aorta PLAN: [] The patient will follow up to see me in 2-4 weeks I will discuss further possible surgical intervention if patient is indeed interested and assess overall preoperative cardiovascular risk assessment. All questions has been answered. ANAND GALLEGO MD Mar 23, 2025 08:03
== END 2025-03-23 12:25 | disposition home or self-care (01) ==
LOC: DAH 05:55
PROVIDERS: ATTEND Internal Medicine Cardiovascular Disease
DX: I73.9 Peripheral vascular disease, unspecified (principal); I87.2 Venous insufficiency (chronic) (peripheral); I35.0 Nonrheumatic aortic (valve) stenosis; I10 Essential (primary) hypertension; E03.9 Hypothyroidism, unspecified; E78.5 Hyperlipidemia, unspecified; Z79.82 Long term (current) use of aspirin; Z79.01 Long term (current) use of anticoagulants; Z79.899 Other long term (current) drug therapy; Z98.890 Other specified postprocedural states
CPT/HCPCS: 80048 ×2; 85025; 85610; 85730; 36415 ×2; 75625; 36246; 75716; 99156; 99157 ×2; C1769; C1894 ×2; J3010; J3490 ×2; J7030; J0360; J2250; J1644; Q9967; A4215; A4335; A4222; A4221; A4663; A4216; A4606; A4520; A4223 ×3; A4554; 36247; 96360; 96361

== ENCOUNTER → 2025-05-21 | Outpatient (CLI) | payer OTHER ==
[2025-05-21 11:22] LABS: APPEARANCE,URINE CLOUDY (CLEAR); GLUCOSE, URINE (UA) NEGATIVE (NEGATIVE); LEUKOCYTE ESTERASE ,URINE 25 Leu/uL (NEGATIVE); NITRATE,URINE 2+ (NEGATIVE); OCCULT BLOOD,URINE NEGATIVE (NEGATIVE)
[2025-05-21 11:23] LABS: ADD UA MICROSCOPIC YES
[2025-05-21 11:36] LABS: SQUAMOUS EPITHELIAL CELL,UR MOD /HPF (0-2)
[2025-05-21 11:42] LABS: IMMATURE GRANULOCYTE ABSOLUTE 0.01 K/uL (0-1); NUCLEATED RED BLOOD CELLS 0.0 % (0.0-0.19); PLATELET COUNT (AUTO) 310 K/uL (130-400); RED BLOOD CELL COUNT(AUTO) 3.77 MIL/uL (4.00-5.50); RED CELL DISTRIBUTION WIDTH 14.6 % (11.0-15.5); WHITE BLOOD COUNT (AUTO) 7.7 K/uL (4.8-10.8)
[2025-05-21 11:49] LABS: CREATININE 0.9 mg/dL (0.5-1.0); GLOMERULAR FILTR. RATE CALC 63.0 mL/min (>90); GLUCOSE,RANDOM 111.0 mg/dL (70-105); SODIUM SERUM 139.0 mmol/L (136-145); UREA NITROGEN, BLOOD 11.0 mg/dL (7-18)
== END | disposition home or self-care (01) ==
LOC: LAB 10:25
PROVIDERS: ATTEND Urology
DX: N39.0 Urinary tract infection, site not specified (principal)
CPT/HCPCS: 36415; 80048; 81001; 85025; 87086; 87186

== ENCOUNTER → 2025-05-26 | Outpatient (CLI) | payer OTHER ==
[~2025-05-26] MED LIST changes: +IOHEXOL 350 MG/ML 100ML INFUS..BTL IV ONE
--- NOTE | 2025-05-26 21:22 | HMCIMG ---
EXAM: CT Abdomen with and without IV Contrast, Delayed Series. CLINICAL HISTORY: Urinary tract infection. TECHNIQUE: Axial computed tomography images of the abdomen and pelvis obtained with and without intravenous contrast, including delayed series. CONTRAST: 99 cc IV contrast administered. CT PARAMETERS: CTDIvol (Body): 100.40 mGy DLP (Body): 4464.30 mGy???cm COMPARISON: No prior available for comparison. FINDINGS: LUNG BASES: Pleural thickening with subpleural ground-glass opacities and subpleural lines noted in dependent areas of bilateral posterobasal segments. No pleural effusion. LIVER: Normal in size and attenuation. No focal lesion or biliary dilatation. GALLBLADDER AND BILE DUCTS: Normal in appearance. No gallstones or biliary ductal dilatation. PANCREAS: Unremarkable. SPLEEN: Normal in size and attenuation. ADRENAL GLANDS: Normal morphology. KIDNEYS, URETERS, AND BLADDER: Kidneys normal in size and enhancement. No hydronephrosis, hydroureter, or calculus. No CT evidence of urinary tract infection. Urinary bladder minimally distended, otherwise unremarkable. STOMACH AND BOWEL: Sliding hiatus hernia measuring approximately 5.0 ??? 5.5 cm. Mild wall thickening involving distal descending and sigmoid colon up to 0.9 cm over a segment of 3 cm???likely inflammatory or early diverticulitic. Uncomplicated colonic diverticulosis. Fecal impaction noted in colon and rectum. No obstruction or pneumoperitoneum. APPENDIX: Normal. PERITONEUM: No free fluid or free air. LYMPH NODES: No significant lymphadenopathy. VASCULATURE: Extensive calcific atherosclerosis involving thoracoabdominal aorta and extending into major branches. No aneurysm. BONES: Grade I anterior listhesis of L3 over L4, L4 over L5, and L5 over S1 due to facet joint degeneration and subluxation. 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 OTHER: Small fat-containing left direct inguinal hernia. IMPRESSION: * No CT evidence of urinary tract infection. * Sliding hiatus hernia measuring approximately 5.0 ??? 5.5 cm. * Mild wall thickening of distal descending and sigmoid colon???likely inflammatory; correlate clinically. * Fat-containing left direct inguinal hernia. * Grade I anterior listhesis (L3???S1) with severe degenerative lumbar spondylosis and compressive neuropathy. /[place]
== END | disposition home or self-care (01) ==
LOC: RAH 07:20
PROVIDERS: ATTEND Urology
DX: K40.90 Unilateral inguinal hernia, without obstruction or gangrene, not specified as recurrent (principal); K44.9 Diaphragmatic hernia without obstruction or gangrene; M47.816 Spondylosis without myelopathy or radiculopathy, lumbar region; G62.9 Polyneuropathy, unspecified; K57.30 Diverticulosis of large intestine without perforation or abscess without bleeding; M43.17 Spondylolisthesis, lumbosacral region; I70.0 Atherosclerosis of aorta; N39.0 Urinary tract infection, site not specified
CPT/HCPCS: 74178; Q9967